=== PATIENT | male | born 1940 | race Caucasian/White ===

== ENCOUNTER 2017-09-20 13:41 | Inpatient (IN) | payer MEDICARE ==
[2017-09-20] VITALS (14 sets, daily range): BP systolic 86–162; BP diastolic 51–98; PULSE 68–165; RESP 16–20; TEMP 98.1; O2SAT 96–99
[~2017-09-20] VITALS: Ht 175.3 cm; Wt 72.4 kg
[~2017-09-20 13:41] MED LIST: ACET325 PO; ASPI81TA82 PO; CLAR10TA7 PO; METO100T PO; VITA500015 PO
--- NOTE | 2017-09-20 14:28 | PD ---
HPI Chief Complaint: Cardiac Complaint Time Seen by Provider: 14:13 Travel History International Travel<30 days: No Contact w/Intl Traveler<30days: No Traveled to known affect area: No History of Present Illness HPI The patient is a 77-year-old male who presents to the emergency department for elevated heart rate. The patient states he saw his primary physician at urgent care who referred him to the emergency department earlier today. He then went to the [facility], to see his fruit packer, Dr. Molian. The patient was noted to be in atrial fibrillation with RVR was sent to the emergency department. The patient is unsure if he has a history of atrial fibrillation, denies taking any anticoagulants for atrial fibrillation. He does take one medication from the [facility], however, cannot recall the name of the medication. The patient states he is currently trying to move into an assisted living facility. He does have a history of left above- [place]. He denies any current chest pain, shortness of breath, nausea, vomiting, or abdominal pain. He does complain of postnasal drip. Symptoms are moderate. He does note he had fever 2 days ago, on Saturday, which has resolved. He denies any dysuria or cough. PFSH Past Medical History Atrial Fibrillation: Yes Cancer: Yes (SKIN) Cardiovascular Problems: Yes Diabetes: No Diminished Hearing: Yes Endocrine: No Gastrointestinal Disorders: Yes (ULCER HX) Genitourinary: No Hepatitis: No Hiatal Hernia: Yes Hypertension: Yes Immune Disorder: No Musculoskeletal: Yes (ARTHRITIS, ) Neurologic: No Psychiatric: No Respiratory: No Immunizations Current: Yes Thyroid Disease: No Tetanus Vaccination: Unknown Influenza Vaccination: Yes Past Surgical History Abdominal Surgery: Yes (PERF. ULCER REP.) AICD: No Joint Replacement: No Pacemaker: No Social History Alcohol Use: Yes (OCC) Tobacco Use: No Substance Use: No Allergies-Medications (Allergen,Severity, Reaction): Coded Allergies: No Known Allergies (Verified Allergy, Unknown, 09/20/17) Reported Meds & Prescriptions Reported Meds & Active Scripts Active Active Prescriptions or Reported Medications Unobtainable Review of Systems Except as stated in HPI: all other systems reviewed are Neg General / Constitutional: Positive: Fever HENT: Positive: Other (Postnasal drip), No: Lightheadedness Cardiovascular: Positive: Irregular Rhythm, Tachycardia, No: Chest Pain or Discomfort Respiratory: No: Shortness of Breath Gastrointestinal: No: Nausea, Vomiting, Abdominal Pain Musculoskeletal: Positive: Other (History of left above-knee amputation) Neurologic: No: Dizziness, Focal Abnormalities Physical Exam Narrative GENERAL: Awake, alert, extremely hard of hearing 77-year-old male who appears his stated age and is in no acute respiratory distress. SKIN: Focused skin assessment warm/dry. HEAD: Atraumatic. Normocephalic. Patient is noted to have dried gallegos appearing substance in the hair which she states is sunscreen. EYES: Pupils equal and round. No scleral icterus. No injection or drainage. ENT: No nasal bleeding or discharge. Hearing aids bilaterally. Poor dentition. Slightly dry mucous membranes. NECK: Trachea midline. No JVD. CARDIOVASCULAR: Irregularly irregular, tachycardic with a heart rate in the 150s. RESPIRATORY: No accessory muscle use. Clear to auscultation. Breath sounds equal bilaterally. GASTROINTESTINAL: Abdomen soft, non-tender, nondistended. Well-healed midline scar. No guarding or rigidity. MUSCULOSKELETAL: Left lower extremity has an above-knee amputation. Right lower extremity has mild pitting edema, knee brace in place. NEUROLOGICAL: Awake and alert. No obvious cranial nerve deficits. Motor grossly within normal limits. Normal speech. Nonfocal. Extremely hard of hearing. Back: No tenderness over the thoracic or lumbar vertebrae. PSYCHIATRIC: Appropriate mood and affect; insight and judgment normal. Data Data Last Documented VS Vital Signs Date Time Temp Pulse Resp B/P (MAP) Pulse Ox O2 Delivery O2 Flow Rate FiO2 09/20/17 15:06 110 20 123/70 (87) 98 Room Air 09/20/17 14:36 2.00 09/20/17 14:10 98.1 Orders Orders Ckmb (Isoenzyme) Profile (09/20/17 14:19) Complete Blood Count With Diff (09/20/17 14:19) Comprehensive Metabolic Panel (09/20/17 14:19) Magnesium (Mg) (09/20/17 14:19) Prothrombin Time / Inr (Pt) (09/20/17 14:19) Act Partial Throm Time (Ptt) (09/20/17 14:19) Troponin I (09/20/17 14:19) Chest, Single Ap (09/20/17 14:19) Ecg Monitoring (09/20/17 14:19) Bilateral Bp Monitoring (09/20/17 14:19) Iv Access Insert/Monitor (09/20/17 14:19) Oximetry (09/20/17 14:19) Oxygen Administration (09/20/17 14:19) Aspirin Chew (Aspirin Chew) (09/20/17 14:30) Sodium Chloride 0.9% Flush (Ns Flush) (09/20/17 14:30) Blood Pressure (09/20/17 14:19) Vital Signs (09/20/17 14:19) Diltiazem Inj (Cardizem Inj) (09/20/17 14:30) Sodium Chloride 0.9% Flush (Ns Flush) (09/20/17 14:30) Diltiazem Inj (Cardizem Inj) (09/20/17 14:30) Sodium Chlor 0.9% 250 Ml Inj (Ns 250 Ml (09/20/17 14:30) Urinalysis - C+S If Indicated (09/20/17 14:19) Influenzae A/B Antigen (09/20/17 14:19) Electrocardiogram (09/20/17 13:49) CKMB (09/20/17 14:15) CKMB% (09/20/17 14:15) Admit Order (Ed Use Only) (09/20/17 15:17) Labs Laboratory Tests Test 09/20/17 14:15 09/20/17 15:00 White Blood Count 5.4 TH/MM3 Red Blood Count 3.81 MIL/MM3 Hemoglobin 10.4 GM/DL Hematocrit 33.6 % Mean Corpuscular Volume 88.3 FL Mean Corpuscular Hemoglobin 27.4 PG Mean Corpuscular Hemoglobin Concent 31.0 % Red Cell Distribution Width 18.1 % Platelet Count 213 TH/MM3 Mean Platelet Volume 7.9 FL Neutrophils (%) (Auto) 64.6 % Lymphocytes (%) (Auto) 24.3 % Monocytes (%) (Auto) 8.8 % Eosinophils (%) (Auto) 0.5 % Basophils (%) (Auto) 1.8 % Neutrophils # (Auto) 3.5 TH/MM3 Lymphocytes # (Auto) 1.3 TH/MM3 Monocytes # (Auto) 0.5 TH/MM3 Eosinophils # (Auto) 0.0 TH/MM3 Basophils # (Auto) 0.1 TH/MM3 CBC Comment DIFF FINAL Differential Comment Prothrombin Time 11.3 SEC Prothromb Time International Ratio 1.1 RATIO Activated Partial Thromboplast Time 28.5 SEC Blood Urea Nitrogen 9 MG/DL Creatinine 0.51 MG/DL Random Glucose 109 MG/DL Total Protein 6.9 GM/DL Albumin 3.8 GM/DL Calcium Level 8.0 MG/DL Magnesium Level 2.0 MG/DL Alkaline Phosphatase 80 U/L Aspartate Amino Transf (AST/SGOT) 20 U/L Alanine Aminotransferase (ALT/SGPT) 27 U/L Total Bilirubin 0.3 MG/DL Sodium Level 137 MEQ/L Potassium Level 3.9 MEQ/L Chloride Level 104 MEQ/L Carbon Dioxide Level 22.6 MEQ/L Anion Gap 10 MEQ/L Estimat Glomerular Filtration Rate 158 ML/MIN Total Creatine Kinase 105 U/L Creatine Kinase MB 1.4 NG/ML Troponin I LESS THAN 0.02 NG/ML Urine Color YELLOW Urine Turbidity CLEAR Urine pH 6.0 Urine Specific [place] 1.010 Urine Protein NEG mg/dL Urine Glucose (UA) NEG mg/dL Urine Ketones TRACE mg/dL Urine Occult Blood NEG Urine Nitrite NEG Urine Bilirubin NEG Urine Urobilinogen 0.2 MG/DL Urine Leukocyte Esterase NEG MDM Medical Decision Making Medical Screen Exam Complete: Yes Emergency Medical Condition: Yes Medical Record Reviewed: Yes Interpretation(s) EKG reveals atrial fibrillation with RVR, rate in the 150s. Laboratory Tests Test 09/20/17 14:15 White Blood Count 5.4 TH/MM3 Red Blood Count 3.81 MIL/MM3 Hemoglobin 10.4 GM/DL Hematocrit 33.6 % Mean Corpuscular Volume 88.3 FL Mean Corpuscular Hemoglobin 27.4 PG Mean Corpuscular Hemoglobin Concent 31.0 % Red Cell Distribution Width 18.1 % Platelet Count 213 TH/MM3 Mean Platelet Volume 7.9 FL Neutrophils (%) (Auto) 64.6 % Lymphocytes (%) (Auto) 24.3 % Monocytes (%) (Auto) 8.8 % Eosinophils (%) (Auto) 0.5 % Basophils (%) (Auto) 1.8 % Neutrophils # (Auto) 3.5 TH/MM3 Lymphocytes # (Auto) 1.3 TH/MM3 Monocytes # (Auto) 0.5 TH/MM3 Eosinophils # (Auto) 0.0 TH/MM3 Basophils # (Auto) 0.1 TH/MM3 CBC Comment DIFF FINAL Differential Comment Prothrombin Time 11.3 SEC Prothromb Time International Ratio 1.1 RATIO Activated Partial Thromboplast Time 28.5 SEC Blood Urea Nitrogen 9 MG/DL Creatinine 0.51 MG/DL Random Glucose 109 MG/DL Total Protein 6.9 GM/DL Albumin 3.8 GM/DL Calcium Level 8.0 MG/DL Magnesium Level 2.0 MG/DL Alkaline Phosphatase 80 U/L Aspartate Amino Transf (AST/SGOT) 20 U/L Alanine Aminotransferase (ALT/SGPT) 27 U/L Total Bilirubin 0.3 MG/DL Sodium Level 137 MEQ/L Potassium Level 3.9 MEQ/L Chloride Level 104 MEQ/L Carbon Dioxide Level 22.6 MEQ/L Anion Gap 10 MEQ/L Estimat Glomerular Filtration Rate 158 ML/MIN Total Creatine Kinase 105 U/L Creatine Kinase MB 1.4 NG/ML Troponin I LESS THAN 0.02 NG/ML Chest x-ray reveals compensated cardiomegaly, otherwise negative Date/Time Source Procedure Growth Status 09/20/17 15:00 Nasal Aspirate Influenza Types A,B Antigen (MIRIAM) - Final NEGATIVE FOR FLU A AND B ANTIGEN.... Complete Differential Diagnosis Differential diagnosis include atrial fibrillation with RVR, new onset atrial fibrillation, cardiomyopathy, sepsis, pneumonia, UTI, electrolyte abnormality, dehydration, pulmonary embolism, hyperthyroidism. Narrative Course IV was established, labs are drawn and sent, and the patient was placed on cardiac telemetry monitoring and continuous pulse oximetry monitoring. EKG was ordered and interpreted. Chest x-ray was obtained. The patient was a cardiovascular disease specialist Cardizem 15 mg intravenously and placed on a Cardizem drip. The patient was administered normal saline 250 cc IV fluid bolus. The patient's heart rate came down to the 120s with the bolus and Cardizem at 5 mg, the Cardizem drip was increased. I reviewed the patient's EMR, he has a history and physical from previous cataract surgery which reveals a history of atrial fibrillation. At that time the patient was taken aspirin and metoprolol. Chest x-ray reveals compensated cardiomegaly, otherwise unremarkable. Influenza screen was negative. The patient may benefit from echocardiogram and further evaluation of anticoagulation as he is at increased risk of stroke. The on-call medical service was paged for admission. Critical Care Narrative Aggregate critical care time was 35 minutes. Time to perform other separately billable procedures was not included in the critical care time. My time did not include minutes spent treating any other patients simultaneously or on activities that did not directly contribute to the patient's treatment. The services I provided to this patient were to treat and/or prevent clinically significant deterioration that could result in: Pulmonary edema, cardiomyopathy , congestive heart failure. I provided critical care services requiring my management, as noted below: Chart data review, documentation time, medication orders and management, vital sign assessments/reviewing monitor data, ordering and reviewing lab tests, ordering and interpreting/reviewing x-rays and diagnostic studies, care of the patient and discussion of the patient with the admitting physicians. Physician Communication Physician Communication The on-call medical service was paged for admission. I discussed the patient with Dr. Vargas who agrees with admission. Diagnosis Primary Impression: Atrial fibrillation with RVR Admitting Information Admitting Physician Requests: Admit Scripts Unable to Obtain Active Prescriptions or Reported Meds Condition: Stable Syed Rubio MD Sep 20, 2017 14:28
[2017-09-20] MEDS ORDERED: SODIUM CHLOR 0.9% 250 ML INJ 250 ML IV ONE (14:30)
[2017-09-20] MEDS ORDERED: SODIUM CHLORIDE 0.9% FLUSH 10 ML FLUSH IV FLUSH PRN ×2 (14:30→15:30)
[2017-09-20] MEDS ORDERED: ASPIRIN 81 MG CHEW TAB PO ONE (14:30)
[2017-09-20] MEDS ORDERED: SODIUM CHLORIDE 0.9% FLUSH 10 ML FLUSH IVF PRN (14:30)
[2017-09-20] MEDS ORDERED: DILTIAZEM INJ 125 MG in SODIUM CHLORIDE 0.9% INJ 100 ML IV PRN (14:30)
[2017-09-20] MEDS ORDERED: DILTIAZEM HCL 25 MG/5 ML VIAL IV ONE (14:30)
[2017-09-20 14:34] LABS: AUTOMATED NEUTROPHIL # 3.5 TH/MM3 (1.8-7.7); BASOPHIL # 0.1 TH/MM3 (0-0.2); BASOPHIL % 1.8 % (0.0-2.0); EOSINOPHIL % 0.5 % (0.0-4.0); HEMATOCRIT 33.6 % (39.0-51.0); HEMOGLOBIN 10.4 GM/DL (13.0-17.0); LYMPH % 24.3 % (9.0-44.0); LYMPHOCYTE # 1.3 TH/MM3 (1.0-4.8); MEAN CELL VOLUME 88.3 FL (80.0-100.0); MEAN CORPUSCULAR HEMOGLOBIN 27.4 PG (27.0-34.0); MEAN PLATELET VOLUME 7.9 FL (7.0-11.0); MONO % 8.8 % (0.0-8.0); MONOCYTE # 0.5 TH/MM3 (0-0.9); NEUT % 64.6 % (16.0-70.0); PLATELET COUNT 213 TH/MM3 (150-450); RED BLOOD COUNT 3.81 MIL/MM3 (4.50-5.90); RED CELL DISTRIBUTION WIDTH 18.1 % (11.6-17.2); WHITE BLOOD COUNT 5.4 TH/MM3 (4.0-11.0)
[2017-09-20 14:50] LABS: CHLORIDE 104 MEQ/L (98-107); SODIUM (NA) 137 MEQ/L (136-145)
[2017-09-20 14:51] LABS: INTERNATIONAL NORMALIZED RATIO 1.1 RATIO; PROTHROMBIN TIME - PATIENT 11.3 SEC (9.8-11.6)
[2017-09-20 14:54] LABS: ALBUMIN 3.8 GM/DL (3.4-5.0); BICARBONATE 22.6 MEQ/L (21.0-32.0); BLOOD UREA NITROGEN 9 MG/DL (7-18); GLUCOSE,RANDOM 109 MG/DL (74-106)
[2017-09-20 14:57] LABS: ALT (GPT) 27 U/L (12-78); AST (GOT) 20 U/L (15-37); CREATININE 0.51 MG/DL (0.60-1.30); GLOMERULAR FILTRATION RATE 158 ML/MIN (>89)
[2017-09-20 14:59] LABS: TOTAL BILIRUBIN ADULT 0.3 MG/DL (0.2-1.0); TOTAL PROTEIN 6.9 GM/DL (6.4-8.2)
[2017-09-20 15:00] LABS: ALKALINE PHOSPHATASE 80 U/L (45-117)
[2017-09-20 15:02] LABS: TROPONIN I LESS THAN 0.02 NG/ML (0.02-0.05)
--- NOTE | 2017-09-20 15:26 | RADRPT ---
EXAM DATE/TIME: 09/20/2017 14:38 [place] COMPARISON: No previous studies available for comparison. INDICATIONS : Chest pain MEDICAL HISTORY : Hypertension. Hiatal hernia. AFib SURGICAL HISTORY : None. ENCOUNTER: Initial ACUITY: 1 day PAIN SCORE: 5/10 LOCATION: Bilateral chest FINDINGS: The lungs are clear. The heart is minimally enlarged. The pulmonary vascularity is normal. There is n o evidence for infiltrate or failure. The portion of the bony skeleton visualized is unremarkable. CONCLUSION: Compensated cardiomegaly otherwise negative Chapo Larose MD FACR on September 20, 2017 at 15:23 Board Certified Radiologist. This report was verified electronically.
[2017-09-20] MEDS ORDERED: SENNOSIDES 8.6 MG TAB PO PRN (15:30)
[2017-09-20] MEDS ORDERED: ONDANSETRON HCL 4 MG/2 ML VIAL IVP PRN (15:30)
[2017-09-20] MEDS ORDERED: NALOXONE HCL 0.4 MG/ML AMP IV PUSH PRN (15:30)
[2017-09-20] MEDS ORDERED: ACETAMINOPHEN 325 MG TAB PO PRN (15:30)
[2017-09-20 15:31] LABS: BILIRUBIN, URINE NEG (NEG); BLOOD, URINE NEG (NEG); GLUCOSE,URINE NEG (NEG); KETONE, URINE TRACE mg/dL (NEG); NITRITE,URINE NEG (NEG); URINE COLOR YELLOW (YELLW/STRAW); URINE LEUKOCYTE ESTERASE NEG (NEG)
[2017-09-20 15:35] LABS: RBC, URINE 0-3 /hpf (0-3); SQUAMOUS EPITHELIAL CELL URINE 0-5 /hpf (0-5)
--- NOTE | 2017-09-20 15:37 | HHI.HP ---
[facility] Service [facility] Primary Care Physician No Primary Care Physician Admission Diagnosis Atrial fibrillation with RVR Diagnoses: Chief Complaint: Elevated heart rate Travel History International Travel<30 Days: No Contact w/Intl Traveler <30 Da: No Traveled to Known Affected Are: No History of Present Illness This patient is a very pleasant 77-year-old gentleman with a history of atrial fibrillation. 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 While he was there they noted his heart rate was elevated and they did an EKG and it appeared to be atrial fibrillation with rapid ventricular response. Patient had no chest pain or palpitations at that time. He then went to see his food and nutrition professor who instructed the patient to come to the hospital. I did obtain records from the cardiology office and the patient indeed has a history of atrial fibrillation but apparently had been quite controlled for some time. He was taking metoprolol without any anticoagulation therapy. He was only on aspirin. Here his blood pressure actually has been pretty normotensive. Patient cannot recall what medications he has been taking. His last progress note is from May 2017. Patient is comfortable and without complaint at this time. He has been recommended for further treatment in the hospital due to atrial fibrillation which is uncontrolled. Review of Systems Constitutional: DENIES: Diaphoretic episodes, Fatigue, Fever, Weight gain, Weight loss, Chills, Dizziness, Change in appetite, Night Sweats Endocrine: DENIES: Heat/cold intolerance, Polydipsia, Polyuria, Polyphagia Eyes: DENIES: Blurred vision, Diplopia, Eye inflammation, Eye pain, Vision loss , Photosensitivity, Double Vision Ears, nose, mouth, throat: DENIES: Tinnitus, Hearing loss, Vertigo, Nasal discharge, Oral lesions, Throat pain, Hoarseness, Ear Pain, Running Nose, Epistaxis, Sinus Pain, Toothache, Odynophagia Respiratory: DENIES: Apneas, Cough, Snoring, Wheezing, Hemoptysis, Sputum production, Shortness of breath Cardiovascular: COMPLAINS OF: Palpitations, DENIES: Chest pain, Syncope, Dyspnea on Exertion, PND, Lower Extremity Edema, Orthopnea, Claudication Gastrointestinal: DENIES: Abdominal pain, Black stools, Bloody stools, Constipation, Diarrhea, Nausea, Vomiting, Difficulty Swallowing, Anorexia Genitourinary: DENIES: Sexual dysfunction, Urinary frequency, Urinary incontinence, Urgency, Hematuria, Dysuria, Nocturia, Penile Discharge, Testicular Pain, Testicular Swelling Musculoskeletal: DENIES: Joint pain, Muscle aches, Stiffness, Joint Swelling, Back pain, Neck pain Integumentary: DENIES: Abnormal pigmentation, Nail changes, Pruritus, Rash Hematologic/lymphatic: DENIES: Bruising, Lymphadenopathy Immunologic/allergic: DENIES: Eczema, Urticaria Neurologic: DENIES: Abnormal gait, Headache, Localized weakness, Paresthesias, Seizures, Speech Problems, Tremor, Poor Balance Psychiatric: DENIES: Anxiety, Confusion, Mood changes, Depression, Hallucinations, Agitation, Suicidal Ideation, Homicidal Ideation, Delusions Past Family Social History Past Medical History Atrial fibrillation Hypertension Allergies Dyspepsia and cataracts Past Surgical History Left BKA Reported Medications Reviewed in the EMR however last progress note from May 2017 from the food and nutrition professor Dr. Molina ~patient taking amlodipine benazepril, aspirin, Claritin, hydralazine, metoprolol, Prilosec and vitamin D Allergies: Coded Allergies: No Known Allergies (Verified Allergy, Unknown, 09/20/17) Active Ordered Medications Reviewed in the EMR Family History Patient does not recall Social History Denies tobacco or alcohol dependency issues but does drink alcohol daily and is retired [employer] Currently transferring his residence to an assisted living facility and lives alone Physical Exam Vital Signs Vital Signs Date Time Temp Pulse Resp B/P (MAP) Pulse Ox O2 Delivery O2 Flow Rate FiO2 09/20/17 15:06 110 20 123/70 (87) 98 Room Air 09/20/17 14:54 106 124/86 09/20/17 14:36 144 20 109/77 (88) 98 Nasal Cannula 2.00 123/78 (93) 09/20/17 14:23 98 Nasal Cannula 2.00 09/20/17 14:23 147 20 162/97 (118) 98 Nasal Cannula 2.00 09/20/17 14:23 98 Nasal Cannula 2.00 09/20/17 14:14 165 20 98 Nasal Cannula 2.00 09/20/17 14:10 98.1 165 20 162/98 (119) 97 Physical Exam GENERAL: This is a well-nourished, well-developed patient, in no apparent distress. SKIN: No rashes, ecchymoses or lesions. Cool and dry. HEAD: Atraumatic. Normocephalic. No temporal or scalp tenderness. EYES: Pupils equal round and reactive. Extraocular motions intact. No scleral icterus. No injection or drainage. ENT: Nose without bleeding, purulent drainage or septal hematoma. Throat without erythema, tonsillar hypertrophy or exudate. Uvula midline. Airway patent. NECK: Trachea midline. No JVD or lymphadenopathy. Supple, nontender, no meningeal signs. CARDIOVASCULAR: afib rapid rate rhythm without murmurs, gallops, or rubs. RESPIRATORY: Clear to auscultation. Breath sounds equal bilaterally. No wheezes , rales, or rhonchi. GASTROINTESTINAL: Abdomen soft, non-tender, nondistended. No hepato-splenomegaly , or palpable masses. No guarding. MUSCULOSKELETAL: right bka. Extremities without clubbing, cyanosis, or edema. No joint tenderness, effusion, or edema noted. No calf tenderness. Negative Homans sign bilaterally. NEUROLOGICAL: Awake and alert. hard of hearing. Motor and sensory grossly within normal limits. Five out of 5 muscle strength in all muscle groups. Normal speech. Laboratory Laboratory Tests Test 09/20/17 14:15 09/20/17 15:00 White Blood Count 5.4 Red Blood Count 3.81 Hemoglobin 10.4 Hematocrit 33.6 Mean Corpuscular Volume 88.3 Mean Corpuscular Hemoglobin 27.4 Mean Corpuscular Hemoglobin Concent 31.0 Red Cell Distribution Width 18.1 Platelet Count 213 Mean Platelet Volume 7.9 Neutrophils (%) (Auto) 64.6 Lymphocytes (%) (Auto) 24.3 Monocytes (%) (Auto) 8.8 Eosinophils (%) (Auto) 0.5 Basophils (%) (Auto) 1.8 Neutrophils # (Auto) 3.5 Lymphocytes # (Auto) 1.3 Monocytes # (Auto) 0.5 Eosinophils # (Auto) 0.0 Basophils # (Auto) 0.1 CBC Comment DIFF FINAL Differential Comment Prothrombin Time 11.3 Prothromb Time International Ratio 1.1 Activated Partial Thromboplast Time 28.5 Blood Urea Nitrogen 9 Creatinine 0.51 Random Glucose 109 Total Protein 6.9 Albumin 3.8 Calcium Level 8.0 Magnesium Level 2.0 Alkaline Phosphatase 80 Aspartate Amino Transf (AST/SGOT) 20 Alanine Aminotransferase (ALT/SGPT) 27 Total Bilirubin 0.3 Sodium Level 137 Potassium Level 3.9 Chloride Level 104 Carbon Dioxide Level 22.6 Anion Gap 10 Estimat Glomerular Filtration Rate 158 Total Creatine Kinase 105 Creatine Kinase MB 1.4 Troponin I LESS THAN 0.02 Urine Color YELLOW Urine Turbidity CLEAR Urine pH 6.0 Urine Specific [place] 1.010 Urine Protein NEG Urine Glucose (UA) NEG Urine Ketones TRACE Urine Occult Blood NEG Urine Nitrite NEG Urine Bilirubin NEG Urine Urobilinogen 0.2 Urine Leukocyte Esterase NEG Date/Time Source Procedure Growth Status 09/20/17 15:00 Nasal Aspirate Influenza Types A,B Antigen (MIRIAM) - Final NEGATIVE FOR FLU A AND B ANTIGEN.... Complete Result Diagram: 09/20/17 1415 09/20/17 1415 Imaging Last Impressions Chest X-Ray 09/20/17 1419 Signed Impressions: Service Date/Time: Wednesday, September 20, 2017 14:38 - CONCLUSION: Compensated cardiomegaly otherwise negative Chapo Larose MD FACR Caprini VTE Risk Assessment Caprini VTE Risk Assessment: Mod/High Risk (score >= 2) VTE Pharm Contraindication: Coagulopathy,INR elevated Caprini Risk Assessment Model Point Value = 1 Point Value = 2 Point Value = 3 Point Value = 5 Age 41-60 Minor surgery BMI > 25 kg/m2 Swollen legs Varicose veins or History of unexplained or recurrent spontaneous Oral contraceptives or hormone replacement Sepsis (< 1 month) Serious lung disease, including pneumonia (< 1 month) Abnormal pulmonary function Acute myocardial infarction Congestive heart failure (< 1 month) History of inflammatory bowel disease Medical patient at bed rest Age 61-74 Arthroscopic surgery Major open surgery (> 45 min) Laparoscopic surgery (> 45 min) Malignancy Confined to bed (> 72 hours) Immobilizing plaster cast Central venous access Age >= 75 History of VTE Family history of VTE Factor V Leiden Prothrombin [id number] Lupus anticoagulant Anticardiolipin antibodies Elevated serum homocysteine Heparin-induced thrombocytopenia Other congenital or acquired thrombophilia Stroke (< 1 month) Elective arthroplasty Hip, pelvis, or leg fracture Acute spinal cord injury (< 1 month) Prophylaxis Regimen Total Risk Factor Score Risk Level Prophylaxis Regimen 0-1 Low Early ambulation 2 Moderate Order ONE of the following: *Sequential Compression Device (SCD) *Heparin 5000 units SQ BID 3-4 Higher Order ONE of the following medications: *Heparin 5000 units SQ TID *Enoxaparin/Lovenox 40 mg SQ daily (WT < 150 kg, CrCl > 30 mL/min) *Enoxaparin/Lovenox 30 mg SQ daily (WT < 150 kg, CrCl > 10-29 mL/min) *Enoxaparin/Lovenox 30 mg SQ BID (WT < 150 kg, CrCl > 30 mL/min) AND/OR *Sequential Compression Device (SCD) 5 or more Highest Order ONE of the following medications: *Heparin 5000 units SQ TID (Preferred with Epidurals) *Enoxaparin/Lovenox 40 mg SQ daily (WT < 150 kg, CrCl > 30 mL/min) *Enoxaparin/Lovenox 30 mg SQ daily (WT < 150 kg, CrCl > 10-29 mL/min) *Enoxaparin/Lovenox 30 mg SQ BID (WT < 150 kg, CrCl > 30 mL/min) AND *Sequential Compression Device (SCD) Assessment and Plan Problem List: (1) Atrial fibrillation with RVR ICD Code: I48.91 - Unspecified atrial fibrillation Status: Acute Plan: Continue with titrating starting Cardizem drip and oral Cardizem We will obtain last records from cardiology Echocardiogram pending Continue telemetry My review of the EKG does show atrial fibrillation with rapid ventricular response on x-ray on my review is negative for acute cardiopulmonary disease (2) HTN (hypertension) ICD Code: I10 - Essential (primary) hypertension Plan: We will continue with patient's home medications of substituting his amlodipine for Cardizem Code Status full code Physician Certification 2 Midnight Certification Type: Admission for Inpatient Services Order for Inpatient Services The services are ordered in accordance with Medicare regulations or non- Medicare payer requirements, as applicable. In the case of services not specified as inpatient-only, they are appropriately provided as inpatient services in accordance with the 2-midnight benchmark. Estimated LOS (days): 3 3 days is the estimated time the patient will need to remain in the hospital, assuming treatment plan goals are met and no additional complications. Post-Hospital Plan: Home Rashida Vargas MD Sep 20, 2017 15:37
[2017-09-20] MEDS ORDERED: FAMOTIDINE 20 MG TAB PO ONE (15:45)
[2017-09-20] MEDS ORDERED: DILTIAZEM-CD 180 MG CAP ER PO ONE (15:45)
[2017-09-20] MEDS: ENOXAPARIN SODIUM 80 MG/0.8 ML SYRINGE SQ SCH (16:32)
[2017-09-20] MEDS: hydrALAZINE HCL 10 MG TAB PO SCH (18:00)
[2017-09-20] MEDS: SODIUM CHLORIDE 0.9% FLUSH 10 ML FLUSH IV FLUSH SCH (21:00)
[2017-09-21 00:30] VITALS: BP 110/70; PULSE 77; RESP 18; O2SAT 96
[2017-09-21 02:50] VITALS: BP 111/71; PULSE 71; RESP 18; O2SAT 96
[2017-09-21 03:52] VITALS: BP 112/71
[2017-09-21 04:00] VITALS: BP 143/81; PULSE 104; RESP 20; TEMP 96.6; O2SAT 98
[2017-09-21] MEDS: ENOXAPARIN SODIUM 80 MG/0.8 ML SYRINGE SQ SCH (04:00)
[2017-09-21] MEDS: hydrALAZINE HCL 10 MG TAB PO SCH ×2 (06:00→13:12)
[2017-09-21 07:46] LABS: BICARBONATE 26.1 MEQ/L (21.0-32.0); CALCIUM 7.8 MG/DL (8.5-10.1)
[2017-09-21 07:49] LABS: AUTOMATED NEUTROPHIL # 2.9 TH/MM3 (1.8-7.7); BASOPHIL % 0.3 % (0.0-2.0); EOSINOPHIL % 0.9 % (0.0-4.0); HEMATOCRIT 29.5 % (39.0-51.0); HEMOGLOBIN 9.8 GM/DL (13.0-17.0); LYMPH % 23.1 % (9.0-44.0); MEAN CELL VOLUME 87.8 FL (80.0-100.0); MEAN CORPUSCULAR HEMOGLOBIN 29.2 PG (27.0-34.0); MEAN CORPUSCULAR HGB CONC 33.2 % (32.0-36.0); MEAN PLATELET VOLUME 7.9 FL (7.0-11.0); MONO % 9.2 % (0.0-8.0); MONOCYTE # 0.4 TH/MM3 (0-0.9); NEUT % 66.5 % (16.0-70.0); PLATELET COUNT 164 TH/MM3 (150-450); RED BLOOD COUNT 3.36 MIL/MM3 (4.50-5.90); RED CELL DISTRIBUTION WIDTH 18.5 % (11.6-17.2); WHITE BLOOD COUNT 4.3 TH/MM3 (4.0-11.0)
[2017-09-21 07:50] LABS: CREATININE 0.46 MG/DL (0.60-1.30)
[2017-09-21 08:00] VITALS: BP 123/73; PULSE 101; RESP 14; TEMP 97.3; O2SAT 99
[2017-09-21] MEDS ORDERED: ASPIRIN 81 MG CHEW TAB CHEW SCH (09:00)
[2017-09-21] MEDS ORDERED: LISINOPRIL 20 MG TAB PO SCH (09:00)
[2017-09-21] MEDS ORDERED: DILTIAZEM-CD 180 MG CAP ER PO SCH (09:00)
[2017-09-21] MEDS: SODIUM CHLORIDE 0.9% FLUSH 10 ML FLUSH IV FLUSH SCH (10:07)
--- NOTE | 2017-09-21 11:10 | HHI.DCPOC ---
Discharge Care Plan Diagnosis: (1) Atrial fibrillation with RVR Goals to Promote Your Health * To prevent worsening of your condition and complications * To maintain your health at the optimal level Directions to Meet Your Goals Take your medications as prescribed Follow your dietary instruction Follow activity as directed Keep your appointments as scheduled Take your immunizations and boosters as scheduled If your symptoms worsen call your PCP, if no PCP go to Urgent Care Center or Emergency Room Smoking is Dangerous to Your Health. Avoid second hand smoke Call the 24-hour hour crisis hotline for domestic abuse at Rashida Vargas MD Sep 21, 2017 11:10
[2017-09-21] MEDS ORDERED: APIX5TAB PO (11:17)
[2017-09-21] MEDS ORDERED: HYDR-3798 PO (11:17)
[2017-09-21] MEDS ORDERED: CARD180C5 PO (11:17)
[2017-09-21] MEDS ORDERED: LISI-515 PO (11:17)
[2017-09-21] MEDS ORDERED: ASPI81 CHEW (11:17)
--- NOTE | 2017-09-21 11:20 | HHI.DS ---
Discharge Summary Admission Date Sep 20, 2017 at 15:18 Discharge Date: Sep 21, 2017 Admitting Diagnosis Atrial fibrillation with RVR (1) Atrial fibrillation with RVR ICD Code: I48.91 - Unspecified atrial fibrillation Status: Acute (2) HTN (hypertension) ICD Code: I10 - Essential (primary) hypertension Procedures None Brief History - From Admission This patient is a very pleasant 77-year-old gentleman with a history of atrial fibrillation. 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 While he was there they noted his heart rate was elevated and they did an EKG and it appeared to be atrial fibrillation with rapid ventricular response. Patient had no chest pain or palpitations at that time. He then went to see his heel stainer who instructed the patient to come to the hospital. I did obtain records from the cardiology office and the patient indeed has a history of atrial fibrillation but apparently had been quite controlled for some time. He was taking metoprolol without any anticoagulation therapy. He was only on aspirin. Here his blood pressure actually has been pretty normotensive. Patient cannot recall what medications he has been taking. His last progress note is from May 2017. Patient is comfortable and without complaint at this time. He has been recommended for further treatment in the hospital due to atrial fibrillation which is uncontrolled. CBC/BMP: 09/21/17 0630 09/21/17 0630 Significant Findings Laboratory Tests Test 09/20/17 14:15 09/20/17 15:00 09/21/17 06:30 Red Blood Count 3.81 MIL/MM3 (4.50-5.90) 3.36 MIL/MM3 (4.50-5.90) Hemoglobin 10.4 GM/DL (13.0-17.0) 9.8 GM/DL (13.0-17.0) Hematocrit 33.6 % (39.0-51.0) 29.5 % (39.0-51.0) Mean Corpuscular Hemoglobin Concent 31.0 % (32.0-36.0) Red Cell Distribution Width 18.1 % (11.6-17.2) 18.5 % (11.6-17.2) Monocytes (%) (Auto) 8.8 % (0.0-8.0) 9.2 % (0.0-8.0) Creatinine 0.51 MG/DL (0.60-1.30) 0.46 MG/DL (0.60-1.30) Random Glucose 109 MG/DL (74-106) Calcium Level 8.0 MG/DL (8.5-10.1) 7.8 MG/DL (8.5-10.1) Troponin I LESS THAN 0.02 NG/ML Urine Ketones TRACE mg/dL (NEG) Blood Urea Nitrogen 6 MG/DL (7-18) Imaging Last Impressions Chest X-Ray 09/20/17 1419 Signed Impressions: Service Date/Time: Wednesday, September 20, 2017 14:38 - CONCLUSION: Compensated cardiomegaly otherwise negative Chapo Larose MD FACR PE at Discharge GENERAL: This is a well-nourished, well-developed patient, in no apparent distress. CARDIOVASCULAR: Rate controlled atrial fibrillation without murmurs, gallops, or rubs. RESPIRATORY: Clear to auscultation. Breath sounds equal bilaterally. No wheezes , rales, or rhonchi. GASTROINTESTINAL: Abdomen soft, non-tender, nondistended. Normal active bowel sounds MUSCULOSKELETAL: Extremities without clubbing, cyanosis, or edema. NEURO: Alert & Oriented x4 to person, place, time, situation. Left BKA Pt update on day of discharge Doing well today. Heart rate is controlled on oral medications. Discharge plans discussed with patient Hospital Course Patient is a 77-year-old gentleman with known atrial fibrillation. He was admitted through the emergency room with uncontrolled ventricular rate. Patient did respond well to diltiazem and his home medications were adjusted. It appears to be some adherence issues and the patient did express understanding. He will follow-up with his heel stainer Pt Condition on Discharge: Good Discharge Disposition: Discharge Home Discharge Time: <= 30 minutes Discharge Instructions DIET: Follow Instructions for: Heart Healthy Diet Activities you can perform: Regular-No Restrictions Follow up Referrals: Cardiology - 1 Week @ [facility] New Medications: Apixaban (Eliquis) 5 Mg Tab 5 MG PO BID for Blood Clot Prevention, #60 TAB 0 Refills Aspirin (Tgt Aspirin) 81 Mg Chw 81 MG CHEW DAILY for cardiac, #31 EA Diltiazem CD 24 HR (Cardizem CD 24 HR) 180 Mg Caper 180 MG PO DAILY for afib, #31 CAP Hydralazine HCl (Hydralazine HCl) 10 Mg Tablet 10 MG PO Q6HR for Blood Pressure Management, #120 TAB Lisinopril (Lisinopril) 20 Mg Tab 20 MG PO DAILY for Blood Pressure Management, #31 TAB Rashida Vargas MD Sep 21, 2017 11:20
[2017-09-21 12:09] VITALS: O2SAT 98
--- NOTE | 2017-09-21 13:11 | ECHRPT ---
Indication: ATRIAL FIB CONCLUSIONS The left ventricular systolic function is low normal with an estimated ejection fraction in the rang e of 50- 55%. Normal left ventricular size. Wall thickness is normal. No regional wall motion abnormalities are present. The left atrial size is mildly dilated. Mild thickening of the mitral valve leaflets. Trace mitral valve regurgitation. Diffuse calcification of the aortic valve without stenosis. There is trace tricuspid valve regurgitation. The estimated pulmonary arterial pressure is 24.6 mmHg. BP: 143 / 81 HR: 101 Rhythm: Atrial fibrillation MEASUREMENTS (Male / Female) Normal Values Technical Quality:Good 2D ECHO LV Diastolic Diameter PLAX 4.7 cm 4.2 - 5.9 / 3.9 - 5.3 cm LV Systolic Diameter PLAX 3.5 cm IVS Diastolic Thickness 1.0 cm 0.6 - 1.0 / 0.6 - 0.9 cm LVPW Diastolic Thickness 1.0 cm 0.6 - 1.0 / 0.6 - 0.9 cm LV Relative Wall Thickness 0.4 RV Internal Dim ED PLAX 3.3 cm LVOT Diameter 2.0 cm LA Systolic Diameter LX 4.3 cm 3.0 - 4.0 / 2.7 - 3.8 cm LV Ejection Fraction MOD 4C 55.1 % LV Cardiac Index MOD 4C 3620.7 cm/minm LV Ejection Fraction 4C AL 57.1 % LV Cardiac Index 4C AL 3899.8 cm/minm M-MODE Aortic Root Diameter MM 2.8 cm LA Systolic Diameter MM 3.9 cm LA Ao Ratio MM 1.4 AV Cusp Separation MM 1.3 cm DOPPLER AV Peak Velocity 167.0 cm/s AV Peak Gradient 11.2 mmHg LVOT Peak Velocity 85.4 cm/s LVOT Peak Gradient 2.9 mmHg AV Area Cont Eq pk 1.6 cm MV Area PHT 3.5 cm LV E' Lateral Velocity 12.0 cm/s LV E' Septal Velocity 9.1 cm/s TR Peak Velocity 191.0 cm/s TR Peak Gradient 14.6 mmHg Right Atrial Pressure 10.0 mmHg Pulmonary Artery Systolic Pressu 24.6 mmHg Right Ventricular Systolic Press 24.6 mmHg PV Peak Velocity 71.9 cm/s PV Peak Gradient 2.1 mmHg FINDINGS LEFT VENTRICLE The left ventricular systolic function is low normal with an estimated ejection fraction in the rang e of 50- 55%. Normal left ventricular size. Wall thickness is normal. No regional wall motion abnormalities are present. RIGHT VENTRICLE Normal right ventricular size and systolic function. LEFT ATRIUM The left atrial size is mildly dilated. RIGHT ATRIUM The right atrial size is normal. ATRIAL SEPTUM Normal atrial septal thickness without atrial level shunting by limited color doppler interrogation. AORTA The aortic root and proximal ascending aorta are normal in size on limited imaging. MITRAL VALVE Mild thickening of the mitral valve leaflets. Trace mitral valve regurgitation. AORTIC VALVE Trileaflet aortic valve. Diffuse calcification of the aortic valve. TRICUSPID VALVE Structurally normal tricuspid valve. There is trace tricuspid valve regurgitation. The estimated pulmonary arterial pressure is 24.6 mmHg. PULMONARY VALVE No pulmonary valve regurgitation or stenosis. VESSELS The inferior vena cava is normal in size. PERICARDIUM No pericardial effusion. Jonny Granado MD (Electronically Signed) Final Date:21 September 2017 13:09
--- NOTE | 2017-09-21 19:29 | EKG ---
Date Performed: 09/21/2017 Time Performed: 02:22:45 PTAGE: 77 years EKG: ATRIAL FIBRILLATION POSSIBLE RIGHT VENTRICULAR HYPERTROPHY ABNORMAL ECG Since the PREVIOUS TRACING , no significant change noted PREVIOUS TRACIN09/20/2017 20.32 DOCTOR: Aminah Lira Interpretating Date/Time 09/21/2017 19:28:08
--- NOTE | 2017-09-21 19:29 | EKG ---
Date Performed: 09/20/2017 Time Performed: 13:49:49 PTAGE: 77 years EKG: ATRIAL FIBRILLATION WITH RAPID VENTRICULAR RESPONSE ABNORMAL RHYTHM ECG Since PREVIOUS TRACING , no significant change noted PREVIOUS TRACIN01/26/2006 13.59 DOCTOR: Aminah Lira Interpretating Date/Time 09/21/2017 19:27:51
--- NOTE | 2017-09-21 19:29 | EKG ---
Date Performed: 09/20/2017 Time Performed: 20:32:42 PTAGE: 77 years EKG: ATRIAL FIBRILLATION ABNORMAL RHYTHM ECG Since the PREVIOUS TRACING , no significant change noted PREVIOUS TRACIN09/20/2017 13.49 DOCTOR: Aminah Lira Interpretating Date/Time 09/21/2017 19:28:00
== END 2017-09-21 14:38 | disposition home or self-care (01) | DRG 310 ==
LOC: PHED 13:41 → PHEDA 15:18 → PHEDH 19:16 → PH3A 09-21 04:06
PROVIDERS: ADMIT Hospitalist; ATTEND Hospitalist
DX: I48.91 Unspecified atrial fibrillation (principal); I10 Essential (primary) hypertension; H91.90 Unspecified hearing loss, unspecified ear; Z89.512 Acquired absence of left leg below knee
CPT/HCPCS: 71045; 80048; 80053; 81001; 82550; 82552; 83735; 84484; 85025; 85610; 85730; 87804; 93005; 93306; 96365; 96375; J1650; J7050